=== PATIENT | female | born 1975 | race Caucasian/White ===

== ENCOUNTER 2023-09-22 07:46 | Outpatient (CLI) | payer OTHER ==
[2023-09-22] MEDS ORDERED: Iopamidol 300 61% 100 ML VIAL FS ONE (10:31)
== END 2023-09-22 07:47 | disposition home or self-care (01) ==
LOC: CSHCT 07:46
PROVIDERS: ATTEND Urology
DX: R39.198 Other difficulties with micturition (principal); R31.29 Other microscopic hematuria; Z87.448 Personal history of other diseases of urinary system
CPT/HCPCS: 74178; Q9967